=== PATIENT | male | born 1965 | race Caucasian/White ===

== ENCOUNTER → 2017-01-03 | Outpatient (CLI) | payer MEDICARE, OTHER | LOC: RAD 13:15 | PROVIDERS: ATTEND Surgery | DX: R10.33 Periumbilical pain (principal); R10.9 Unspecified abdominal pain | CPT/HCPCS: 74177; 82565 ==

== ENCOUNTER 2018-07-28 09:37 | Day surgery (SDC) | payer MEDICARE, OTHER ==
[~2018-07-28 09:37] MED LIST: PROPOFOL INJ 200 MG/20 ML VIAL IV ONE
[2018-07-28 12:28] VITALS: BP 98/62
--- NOTE | 2018-07-28 13:25 | Operative Report ---
Operative Report DATE OF SURGERY: 07/28/18 Operative Report: The risks, benefits and alternatives of the procedure including the risk of bleeding, perforation requiring surgery are explained to the patient in detail and informed consent was obtained. The patient is placed in the left, lateral decubital position. Timeout was called. Propofol medication is administered. Rectal examination is done which did not reveal any masses, tears or fissures. An Olympus videoscope was inserted into the patient's rectum. The scope was then carefully advanced all the way to the cecum. The cecum was identified by the usual anatomical landmarks including the ileocecal valve as well as the appendiceal office. Photodocumentation was obtained. The scope was then sequentially pulled back via the rest segments of the colon including the ascending colon, hepatic flexure, transverse colon, splenic flexure, descending colon and finally the rectosigmoid portions of the colon. Retroflexion maneuvers performed. Prep is not as good with some liquid fecal material throughout the colon. Scope withdrawal time 12 minutes. PREOPERATIVE DIAGNOSIS: Colorectal cancer screening POSTOPERATIVE DIAGNOSIS: Mild right-sided colon inflammation status post biopsy rule out collagenous colitis OPERATION: Colonoscopy with biopsy SURGEON: SEBASTIEN ELY ANESTHESIA: LMAC TISSUE REMOVED OR ALTERED: As noted above. COMPLICATIONS: None. ESTIMATED BLOOD LOSS: None. INTRAOPERATIVE FINDINGS: As noted above. PROCEDURE: Patient tolerated the procedure well. No immediate postprocedure complications are noted. Patient discharged in good condition. Discharge date 07/28/2018. Discharge diet: Regular. Discharge activity: Regular. 2-3-week follow-up to discuss findings. Patient is instructed call the office or proceed to the emergency room should there be any further problems or questions. Wait on the pathology. Given the prep perhaps a 5-year surveillance colonoscopy rather than 10-year. Patient does also have some redundant colon
== END 2018-07-28 12:05 | disposition home or self-care (01) ==
LOC: END 09:37
PROVIDERS: ATTEND Internal Medicine Gastroenterology
DX: Z12.11 Encounter for screening for malignant neoplasm of colon (principal); K52.9 Noninfective gastroenteritis and colitis, unspecified
CPT/HCPCS: 45380; 88305 ×2; J2704; 812

== ENCOUNTER → 2019-05-13 | Outpatient (CLI) | payer MEDICARE, OTHER ==
--- NOTE | 2019-05-13 14:52 | RADIOLOGY REPORT (SQ) ---
EXAM DESCRIPTION: ABDOMEN 2 VIEWS COMPLETED DATE/TIME: 05/13/2019 2:39 pm REASON FOR STUDY: GENERALIZED ABDOMINAL PAIN R10.84 GENERALIZED ABDOMINAL PAIN COMPARISON: None. NUMBER OF VIEWS: Two views. TECHNIQUE: Supine and erect/decubitus radiographic images of the abdomen acquired. LIMITATIONS: None. FINDINGS: FREE AIR: None. No abnormal gas collections. LUNG BASES: Clear. BOWEL GAS PATTERN: Gas pattern is nonspecific. There is large amount of stool in the colon. Mild sm all-bowel distention. There is gastric distention. CALCIFICATIONS: No suspicious calcifications. SOFT TISSUES: No gross mass or suggestion of organomegaly. HARDWARE: None in the abdomen. BONES: No acute fracture. No worrisome bone lesions. OTHER: No other significant finding. IMPRESSION: Distention of the stomach. Mild distention of small bowel. Moderate amount of stool th roughout the colon. Findings are nonspecific. TECHNICAL DOCUMENTATION: JOB ID: [id number] [employer]- All Rights Reserved Reading location - IP/workstation name: [email or web address]
== END ==
LOC: OD 14:25
PROVIDERS: ATTEND Nurse Practitioner Family
DX: R10.84 Generalized abdominal pain (principal)
CPT/HCPCS: 74019

== ENCOUNTER → 2020-01-04 | Outpatient (CLI) | payer MEDICARE, OTHER ==
--- NOTE | 2020-01-04 12:40 | RADIOLOGY REPORT (SQ) ---
EXAM DESCRIPTION: U/S THYROID/SFT TISS HD NECK COMPLETED DATE/TIME: 01/04/2020 10:32 am REASON FOR STUDY: THYROID FULLNESS E07.89 OTHER SPECIFIED DISORDERS OF THYROID COMPARISON: None. TECHNIQUE: Dynamic and static menendez-scale images acquired of the thyroid gland. Selected additional c olor/power Doppler images recorded. All images stored to PACS. LIMITATIONS: None. FINDINGS: RIGHT LOBE: Normal size, 4.7 x 2.6 x 1.4 cm. Homogeneous echotexture. No cystic or solid masses. LEFT LOBE: Normal size, 4.3 x 1.4 x 1.9 cm. Homogeneous echotexture. No cystic or solid masses. ISTHMUS: Normal size, 3.2 mm. Homogeneous echotexture. No cystic or solid masses. OTHER: No other significant finding. IMPRESSION: NORMAL THYROID ULTRASOUND. TECHNICAL DOCUMENTATION: JOB ID: [id number] [employer]- All Rights Reserved Reading location - IP/workstation name: [email or web address]
== END ==
LOC: RAD 09:55
PROVIDERS: ATTEND Otolaryngology
DX: E07.89 Other specified disorders of thyroid (principal)
CPT/HCPCS: 76536

== ENCOUNTER 2020-04-07 08:49 | Emergency (ER) | payer MEDICARE, OTHER ==
--- NOTE | 2020-04-07 11:43 | ER Document Report ---
HPI - HPI Patient complains to provider of: Thigh pain Time Seen by Provider: 04/07/20 10:38 Onset: This morning Onset/Duration: Persistent Quality of pain: Burning Pain Level: 4 Context: Patient states that he was outside and his son was weed eating and something hit his eye 3 days ago. Patient states that initially he did not have any eye discomfort. Patient states that he did not have any pain after this incident. Patient states this morning he started to have some discomfort to the eye and he thought he may have an eyelash in the eye. Patient did attempt to irrigate his eye. Patient does not wear contact lenses although does wear reading glasses. Patient reports a foreign body sensation in the eye. Patient denies any blurred vision. Associated Symptoms: Other - Eye discomfort Exacerbated by: Denies Relieved by: Denies Similar symptoms previously: No Recently seen / treated by doctor: No - ROS ROS below otherwise negative: Yes Systems Reviewed and Negative: Yes All other systems reviewed and negative - EENT EENT: REPORTS: Eye problems - GASTROINTESTINAL Gastrointestinal: DENIES: Nausea, Patient vomiting - DERM Skin Color: Normal Skin Problems: None Past Medical History - General Information source: Patient - Social History Smoking Status: Never Smoker Chew tobacco use (# tins/day): Yes Frequency of alcohol use: Occasional Drug Abuse: None Occupation: None Lives with: Family Family History: None, Reviewed & Not Pertinent - Medical History Medical History: Other - Past Medical History Cardiac Medical History: Denies: Hx Coronary Artery Disease, Hx Heart Attack, Hx Hypertension Pulmonary Medical History: Reports: Hx Bronchitis - 2 x yearly, Hx Pneumonia - 3 x yearly (last time 12/2014), Hx Sleep Apnea Neurological Medical History: Reports: Other - ly tumor. Denies: Hx Cerebrovascular Accident, Hx Seizures GI Medical History: Reports: Hx Gastroesophageal Reflux Disease, Hx Irritable Quirino wel, Hx Ulcer Musculoskeletal Medical History: Reports Hx Arthritis - Lower back, knees Psychiatric Medical History: Reports: Hx Depression, Hx Post Traumatic Stress Disorder Past Surgical History: Reports: Hx Abdominal Surgery - to fix bowel perforation from peptic ulcer, Hx Bowel Surgery - ULCER, Hx Orthopedic Surgery - C4-C7 fusion. Denies: Hx Pacemaker - Immunizations Hx Diphtheria, Pertussis, Tetanus Vaccination: Yes Vertical Provider Document - CONSTITUTIONAL Agree With Documented VS: Yes Exam Limitations: No Limitations General Appearance: WD/WN, No Apparent Distress - INFECTION CONTROL TRAVEL OUTSIDE OF THE [place] IN LAST DAYS: Yes - GAMA - HEENT HEENT: Atraumatic, Normocephalic Notes: Patient with 2 small corneal abrasions to the left eye that do not overlie the pupil with mild fluorescein uptake. No corneal ulcer, foreign body or dendritic lesion. - NECK Neck: Normal Inspection - RESPIRATORY Respiratory: Breath Sounds Normal, No Respiratory Distress - CARDIOVASCULAR Cardiovascular: Regular Rate, Regular Rhythm - MUSCULOSKELETAL/EXTREMETIES Musculoskeletal/Extremeties: MAEW - NEURO Level of Consciousness: Awake, Alert, Appropriate Motor/Sensory: No Motor Deficit - DERM Integumentary: Warm Course - Re-evaluation Re-evalutation: 04/07/20 11:41 Patient with 2 corneal abrasions to the left eye, will provide patient with antibiotic prescription and encourage outpatient follow-up with ophthalmology for any persistent problems. - Vital Signs Vital signs: Temp Pulse Resp BP Pulse Ox 98.8 F 82 18 125/71 99 04/07/20 08:50 04/07/20 08:50 04/07/20 08:50 04/07/20 08:50 04/07/20 08:50 Procedures - Eye Procedure Left Fluorescein applied: Left Slit lamp used: No Eyes picture: 1 - Corneal abrasion 2 - Corneal abrasion Discharge - Discharge Clinical Impression: Corneal abrasion Qualifiers: Encounter type: initial encounter Laterality: left Qualified Code(s): S05.02XA - Injury of conjunctiva and corneal abrasion without foreign body, left eye, initial encounter Condition: Stable Disposition: HOME, SELF-CARE Instructions: Corneal Abrasion ([facility]) Additional Instructions: Return immediately for any new or worsening symptoms Followup with your primary care provider, call tomorrow to make a followup appointment 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
[2020-04-07 11:58] VITALS: BP 124/64
== END 2020-04-07 11:58 | disposition home or self-care (01) ==
LOC: ER 08:49
DX: S05.02XA Injury of conjunctiva and corneal abrasion without foreign body, left eye, initial encounter (principal); W20.8XXA Other cause of strike by thrown, projected or falling object, initial encounter; Y93.H9 Activity, other involving exterior property and land maintenance, building and construction
CPT/HCPCS: 99283